=== PATIENT | male | born 2000 | race African-American/Black ===

== ENCOUNTER 2024-04-02 17:04 | Emergency (ER) | payer OTHER ==
[~2024-04-02] VITALS: Ht 175.3 cm; Wt 63.5 kg
[2024-04-02 17:05] VITALS: O2SAT 100
[2024-04-02] MEDS ORDERED: DOXY100C74 MT (17:24)
[2024-04-02] MEDS: CEFTRIAXONE SODIUM 500MG VIAL IM ONE (17:35)
[2024-04-02 17:36] VITALS: BP 125/68; PULSE 91; RESP 16; TEMP 37.11408; O2SAT 100
== END 2024-04-02 17:45 | disposition home or self-care (01) ==
LOC: ER 17:04
DX: A74.9 Chlamydial infection, unspecified (principal); Z76.0 Encounter for issue of repeat prescription; Z98.890 Other specified postprocedural states
CPT/HCPCS: 99283; 96372; J0696

== ENCOUNTER 2024-05-11 18:55 | Emergency (ER) | payer MEDICAID, OTHER ==
[~2024-05-11] VITALS: Ht 175.3 cm; Wt 65.7 kg
[~2024-05-11 18:55] MED LIST: DOXY100C74 MT
[2024-05-11 19:09] VITALS: O2SAT 98
[2024-05-11] MEDS ORDERED: CEFTRIAXONE SODIUM 500MG VIAL IM ONE (20:45)
[2024-05-11] MEDS ORDERED: DOXY100T2 MT (21:21)
[2024-05-11] MEDS: CEFTRIAXONE SODIUM 500MG VIAL IM NR (21:23)
[2024-05-11 21:26] LABS: CLARITY URINE CLEAR (CLEAR); COLOR URINE DARK YELLOW (YELLOW); GLUCOSE URINE NEGATIVE (NEGATIVE); KETONES URINE TRACE (NEGATIVE); LEUKOCYTE ESTERASE URINE NEGATIVE (NEGATIVE); NITRITE URINE NEGATIVE (NEGATIVE); OCCULT BLOOD URINE NEGATIVE (NEGATIVE); PROTEIN URINE TRACE (NEGATIVE); SPECIFIC GRAVITY URINE 1.033 (1.005-1.030)
[2024-05-11 21:49] LABS: BACTERIA URINE 1+; RBC URINE 0-2 /hpf (0-2); SQUAMOUS EPITHELIAL CELL URINE FEW /lpf (RARE/1+)
[2024-05-11 21:50] LABS: WBC URINE 0-2 /hpf (0-2)
[2024-05-11 21:53] VITALS: BP 134/66; PULSE 70; RESP 16; TEMP 36.78072; O2SAT 98
[2024-05-14 04:07] LABS: CHLAMYDIA TRACHOMATIS NAA Negative (Negative); NEISSERIA GONORRHOEAE NAA Negative (Negative)
== END 2024-05-11 21:55 | disposition home or self-care (01) ==
LOC: ER 18:56
DX: Z11.3 Encounter for screening for infections with a predominantly sexual mode of transmission (principal); Z98.890 Other specified postprocedural states
CPT/HCPCS: 99283; 87491; 87591; 81003; 96372; J0696

== ENCOUNTER 2025-02-07 23:29 | Emergency (ER) | payer MEDICAID ==
[~2025-02-07] VITALS: Ht 175.3 cm; Wt 61.0 kg
[~2025-02-07 23:29] MED LIST changes: +DOXY-461 MT; -DOXY100C74 MT; +DOXY100T2 MT
[2025-02-07 23:32] VITALS: O2SAT 98
[2025-02-08] MEDS ORDERED: LIDO-53 TP (00:02)
[2025-02-08] MEDS ORDERED: NAPR-1176 MT (00:02)
[2025-02-08] MEDS: KETOROLAC 15MG/ML VIAL IM ONE (01:11)
[2025-02-08 01:22] VITALS: BP 122/71; PULSE 51; RESP 14; TEMP 37.1; O2SAT 99
== END 2025-02-08 01:39 | disposition home or self-care (01) ==
LOC: ER 23:29
DX: M25.512 Pain in left shoulder (principal); Z79.1 Long term (current) use of non-steroidal anti-inflammatories (NSAID); Z98.890 Other specified postprocedural states; Z79.899 Other long term (current) drug therapy
CPT/HCPCS: 99283; 96372; J1885; Z7610; A4565